=== PATIENT | male | born 1955 | race Caucasian/White ===

== ENCOUNTER 2021-01-23 02:00 | Day surgery (SDC) | payer OTHER, SELFPAY ==
[2021-01-19 13:20] VITALS: BMI 33.7
--- NOTE | 2021-01-23 10:58 | PM.HPGS ---
History of Present Illness History of Present Illness Consent: Risks, benefits, and alternatives have been discussed and questions answered. Patient agrees to proceed with procedure. Chief complaint: diarrhea, hx of colon polyps Narrative: Vini Perez is a 65 year old male Who has been having diarrhea for the past 5 weeks or so. This began on December 13. Yes that was abrupt, however there was no fever abdominal pain or other symptoms to suggest an infection. He had stool cultures done by his primary care physician all of which were negative. He was prescribed Lomotil but he states that it 'Knocked him out' because it is a narcotic. was no travel or antibiotic use prior to the onset of diarrhea. He had 2 polyps removed about 4 years ago. Review of Systems Review of Systems: All systems reviewed & are unremarkable except as noted in HPI and below PMFSH Past Medical History Medical History Alcohol abuse BMI 31.0-31.9,adult BMI 32.0-32.9,adult BMI 33.0-33.9,adult Essential (primary) hypertension RIGO (obstructive sleep apnea) Other hyperlipidemia Family History Family History Mother Hypertension Family history of arthritis Family history of diabetes mellitus in first degree relative Father Family history of pancreatic cancer Grandparent Diabetes mellitus Other Cerebrovascular accident Social History Social History Social History: none Smoking status: Never smoker Second hand tobacco smoke exposure: No Alcohol intake: current Drinks per week: 70 Living arrangements: with family Spiritual care concerns: No Meds Home Medications and Allergies Home Medications Medication Instructions Recorded Confirmed Type losartan 25 mg tablet 12.5 mg PO DAILY #30 tablet 10/13/20 01/19/21 Rx rosuvastatin 20 mg tablet 20 mg PO DAILY #90 tablet 11/07/20 01/19/21 Rx paroxetine HCl 30 mg tablet 30 mg PO DAILY #90 tablet 11/17/20 01/19/21 Rx cholecalciferol (vitamin D3) 250 250 mcg PO DAILY 01/07/21 01/19/21 History mcg (10,000 unit) capsule diphenoxylate-atropine 2.5 2 tablet PO QID #30 tablet 01/07/21 01/19/21 Rx mg-0.025 mg tablet multivitamin 1 tablet PO DAILY 01/07/21 01/19/21 History omeprazole magnesium [Prilosec OTC] 20 mg PO DAILY 01/19/21 01/19/21 History Allergies Allergy/AdvReac Type Severity Reaction Status Date / Time hydrochlorothiazide Allergy Mild Unknown Verified 01/23/21 12:42 lisinopril Allergy Unknown Unknown Verified 01/23/21 12:42 nebivolol Allergy Unknown Unknown Verified 01/23/21 12:42 Exam Resp: Auscultation: clear to auscultation bilaterally Cardio: Rate: regular rate Rhythm: regular rhythm GI: GI Palp: Yes Soft to palpation and No Tenderness to palpation present (GI) Assessment and Plan Assessment and plan (1) Diarrhea: Qualifiers: Diarrhea type: unspecified type Qualified Code(s): R19.7 - Diarrhea, unspecified Code(s): R19.7 - Diarrhea, unspecified Status: Acute Assessment and Plan: Colonoscopy with possible biopsy or polypectomy or cautery or injection of substances.
[2021-01-23 12:43] VITALS: BP 149/91; PULSE 86; RESP 16; TEMP 36.4; O2SAT 97
--- NOTE | 2021-01-23 12:48 | P.PNAN_ITS ---
Anes - Initial Pre Proc Eval Procedure: Operation Date: 01/23/21 13:30 Proposed Procedures p Colonoscopy - Hosea Faye MD Date/Time: 01/23/21 12:48 Surgeon: Hosea Faye MD Pre Op Diagnosis: diarrhea, hx of colon polyps Patient Data Age: 65 Gender: M Height: 1.85 m Weight: 112.8 kg Last Vital Signs Temp 36.4 C L 01/23/21 12:43 Pulse 86 01/23/21 12:43 Resp 16 01/23/21 12:43 BP 149/91 H 01/23/21 12:43 Pulse Ox 97 01/23/21 12:43 Allergies Allergy/AdvReac Type Severity Reaction Status Date / Time hydrochlorothiazide Allergy Mild Unknown Verified 01/23/21 12:42 lisinopril Allergy Unknown Unknown Verified 01/23/21 12:42 nebivolol Allergy Unknown Unknown Verified 01/23/21 12:42 Home Medications Medication Instructions Recorded Confirmed Type losartan 25 mg tablet 12.5 mg PO DAILY #30 tablet 10/13/20 01/19/21 Rx rosuvastatin 20 mg tablet 20 mg PO DAILY #90 tablet 11/07/20 01/19/21 Rx paroxetine HCl 30 mg tablet 30 mg PO DAILY #90 tablet 11/17/20 01/19/21 Rx cholecalciferol (vitamin D3) 250 250 mcg PO DAILY 01/07/21 01/19/21 History mcg (10,000 unit) capsule diphenoxylate-atropine 2.5 2 tablet PO QID #30 tablet 01/07/21 01/19/21 Rx mg-0.025 mg tablet multivitamin 1 tablet PO DAILY 01/07/21 01/19/21 History omeprazole magnesium [Prilosec OTC] 20 mg PO DAILY 01/19/21 01/19/21 History Patient hx anesthesia problems: none Family hx anesthesia problems: other (slow to awaken) [facility] Past Medical History Medical History Alcohol abuse BMI 31.0-31.9,adult BMI 32.0-32.9,adult BMI 33.0-33.9,adult Essential (primary) hypertension RIGO (obstructive sleep apnea) Other hyperlipidemia Family History Family History Mother Hypertension Family history of arthritis Family history of diabetes mellitus in first degree relative Father Family history of pancreatic cancer Grandparent Diabetes mellitus Other Cerebrovascular accident Social History Social History Social History: none Smoking status: Never smoker Second hand tobacco smoke exposure: No Alcohol intake: current Drinks per week: 70 Living arrangements: with family Spiritual care concerns: No Anes - Eval Final PreProcedure Day of Procedure 01/23/21 12:48 Patient weight: obese Heart: regular rate and rhythm Lungs: clear to auscultation Airway: Mallampati scale class II Neurological: alert and oriented Last oral intake: >/= 8 hours ASA classification: III Emergent: no Anesthetic plan: proceed Anesthesia type and monitoring: general GIVS and standard monitoring Informed Consent: The patient's anesthetic plan and its attendant risks and benefits were discussed with the patient/family/POA. Questions were solicited and answers provided to the satisfaction of the patient/family/POA.
[2021-01-23] MEDS: LACTATED RINGERS 1,000 ML 150 ML IV CONT (12:50)
[2021-01-23 13:23] VITALS: BP 122/80; PULSE 83; RESP 16; O2SAT 93
[2021-01-23 13:33] VITALS: BP 146/87; PULSE 81; RESP 18; O2SAT 98
[2021-01-23 13:43] VITALS: BP 153/95; PULSE 70; RESP 16; O2SAT 99
== END 2021-01-23 13:57 | disposition home or self-care (01) ==
PROVIDERS: PCP Family Medicine; Visit Provider Internal Medicine Gastroenterology
PROC: 0DJD8ZZ Inspection of Lower Intestinal Tract, Via Natural or Artificial Opening Endoscopic (ICD-10-PCS; CPT 45378; principal; 2021-01-23 13:30)
DX: K52.831 Collagenous colitis (principal); K52.832 Lymphocytic colitis; R19.7 Diarrhea, unspecified; I10 Essential (primary) hypertension; E78.5 Hyperlipidemia, unspecified; G47.33 Obstructive sleep apnea (adult) (pediatric)
CPT/HCPCS: 45380; 88305; J2704; J7120

== ENCOUNTER 2021-11-04 10:12 | Outpatient (CLI) | payer OTHER, SELFPAY ==
--- NOTE | 2021-11-11 15:34 | WPDHOLTEREM ---
Holter/Event Monitor Holter/Event Monitor Date of procedure: 11/04/21 Holter/Event Procedure: 48 Hr Holter Monitor Indications: Arrhythmia Conclusion: 1. 48 hour holter monitor on 11/04/21. 2. Underlying rhythm is sinus rhythm. HR range 58-164 bpm; average HR 90 bpm. HR at 164 bpm at 12:44. 3. There are 22 premature supraventricular complexes and 1 supraventricular couplet. No supraventricular tachycardia. 4. There are 4,425 premature ventricular complexes, 82 ventricular couplets, 2 ventricular triplets, 23 ventricular bigeminy and 99 ventricular trigeminy. No ventricular tachycardia. 5. No sinoatrial or atrioventricular blocks. No significant pauses greater than 2 seconds. 6. Patient reports lightheadedness which demonstrate sinus tachycardia at 152 bpm with PVC's.
== END 2021-11-04 10:13 | disposition home or self-care (01) ==
LOC: ANHCARD 10:15
PROVIDERS: PCP Family Medicine; Visit Provider Nurse Practitioner Family
DX: I49.9 Cardiac arrhythmia, unspecified (principal)
CPT/HCPCS: 93225; 93226

== ENCOUNTER 2022-01-08 07:56 | Outpatient (CLI) | payer OTHER, SELFPAY ==
--- NOTE | 2022-01-08 07:59 | EST_ITS ---
Patient Info Name: Vini Perez Age: 66 years : 1955 Gender: Male Ht: 75 in Wt: 260 lbs BSA: 2.53 m2 HR: 61 bpm BP: 150 / 94 mmHg Heart Rhythm: Sinus Rhythm Exam Date: 01/08/2022 9:20 AM Exam Location: [facility] Patient Status: Outpatient Admit Date: 01/08/2022 Staff Ordering Physician: Boaz Rajan DO Attending Provider: Boaz Rajan DO Exercise Technologist: Natalie Gorman CT Exercise Physician: Boaz Rajan DO Exam Type: CA stress test treadmill Study Info Indications R06.02 - Shortness of breath A treadmill exercise stress test was performed. Summary 1. 1. Negative Daivd exercise stress test for ischemic ST changes by ECG criteria. 2. 2. Reduced functional capacity, achieving 5.9 METs of workload. 3. 3. Baseline hypertension. 4. 4. Appropriate HR response to exercise. 5. 5. Appropriate HR recovery at 1 minute post exercise. 6. 6. No imaging with stress testing. 7. 7. Patient informed of the above results. Protocol: [facility] ECG Details Stage: REST Duration (min): 2 min : 54 sec Speed (mph): 0.0 Grade (%): 0 HR (bpm): 64 SBP (mmHg): 150 DBP (mmHg): 94 METS: --- Stage: REST Duration (min): 10 min : 0 sec Speed (mph): 0.0 Grade (%): 0 HR (bpm): 64 SBP (mmHg): 150 DBP (mmHg): 94 METS: --- Stage: STAGE 1 Duration (min): 1 min : 0 sec Speed (mph): 1.7 Grade (%): 10 HR (bpm): 103 SBP (mmHg): 150 DBP (mmHg): 94 METS: --- Stage: STAGE 1 Duration (min): 2 min : 0 sec Speed (mph): 1.7 Grade (%): 10 HR (bpm): 120 SBP (mmHg): 150 DBP (mmHg): 94 METS: --- Stage: STAGE 1 Duration (min): 3 min : 0 sec Speed (mph): 1.7 Grade (%): 10 HR (bpm): 122 SBP (mmHg): 186 DBP (mmHg): 82 METS: --- Stage: STAGE 2 Duration (min): 0 min : 40 sec Speed (mph): 2.5 Grade (%): 12 HR (bpm): 130 SBP (mmHg): 186 DBP (mmHg): 82 METS: --- Stage: RECOVERY Duration (min): 0 min : 19 sec Speed (mph): 0.0 Grade (%): 0 HR (bpm): 129 SBP (mmHg): 186 DBP (mmHg): 82 METS: --- Stage: RECOVERY Duration (min): 1 min : 19 sec Speed (mph): 0.0 Grade (%): 0 HR (bpm): 89 SBP (mmHg): 186 DBP (mmHg): 82 METS: --- Stage: RECOVERY Duration (min): 2 min : 19 sec Speed (mph): 0.0 Grade (%): 0 HR (bpm): 67 SBP (mmHg): 186 DBP (mmHg): 82 METS: --- Stage: RECOVERY Duration (min): 3 min : 19 sec Speed (mph): 0.0 Grade (%): 0 HR (bpm): 65 SBP (mmHg): 159 DBP (mmHg): 85 METS: --- Stage: RECOVERY Duration (min): 3 min : 21 sec Speed (mph): 0.0 Grade (%): 0 HR (bpm): 65 SBP (mmHg): 159 DBP (mmHg): 85 METS: --- Rest HR: 64 bpm Peak HR: 131 bpm Rest Sys BP: 150 mmHg Peak Sys BP: 186 mmHg Max Pred HR: 155 bpm % Max Pred HR: 85 % Target HR: 132 bpm Max RPP: 24,366 bpm*mmHg [facility]
--- NOTE | 2022-01-08 07:59 | ECHO_ITS ---
Patient Info Name: Vini Perez Age: 66 years : 1955 Gender: Male Ht: 75 in Wt: 260 lbs BSA: 2.53 m2 HR: 60 bpm BP: 138 / 93 mmHg Technical Quality: Good Exam Date: 01/08/2022 8:31 AM Exam Location: [facility] Pulmonary Patient Status: Outpatient Admit Date: 01/08/2022 Staff Ordering Physician: Boaz Rajan DO Heating Element Repairer: Bridger Gaffney RDCS, RT Attending Provider: Boaz Rajan DO Referring Physician: Satinder BUSTOS; Exam Type: CA echo doppler color flow Study Info Complete two-dimensional, color flow and Doppler transthoracic echocardiogram is performed. Strain analysis performed. Summary 1. Complete two-dimensional, color flow and Doppler transthoracic echocardiogram is performed. 2. Left ventricular chamber dimension is normal. 3. Left ventricular systolic function is normal, estimated at 55-60%. 4. The left ventricular diastolic function is grade II diastolic dysfunction. 5. E/e' 10 is mildly elevated. 6. Global longitudinal strain is abnormal at -14.6%. 7. There is trace mitral valve regurgitation. 8. The aortic root size at the sinus of Valsalva is borderline dilated at 4.1 cm. Left Ventricle E/e' 10 is mildly elevated. Global longitudinal strain is abnormal at -14.6%. Left ventricular chamber dimension is normal. Left ventricular systolic function is normal, estimated at 55-60%. The left ventricular diastolic function is grade II diastolic dysfunction. Right Ventricle Right ventricular systolic function is normal and with normal TAPSE 2.2 cm. Right ventricular chamber dimension is normal. Left Atria Left atrial chamber dimension is normal. Right Atria Right atrial chamber dimension is normal. Aortic Valve The aortic valve is trileaflet. There is no aortic valve stenosis. There is no aortic valve regurgitation. Pulmonic Valve There is no pulmonic regurgitation. Mitral Valve There is no mitral valve stenosis. There is trace mitral valve regurgitation. Tricuspid Valve There is no tricuspid valve regurgitation. Pericardium/Pleural There is no pericardial effusion. Inferior Vena Cava Normal inferior vena cava with >50% collapse upon inspiration consistent with normal right atrial pressure, 5 mmHg. Aorta The aortic root size at the sinus of Valsalva is borderline dilated at 4.1 cm. Left Ventricular Outflow Tract Name Value Normal LVOT 2D LVOT Diameter 2.1 cm LVOT Doppler LVOT Peak Gradient 2 mmHg LVOT Mean Gradient 1 mmHg LVOT VTI 17 cm LVOT VTI/AV VTI Ratio 0.8 LVOT Stroke Volume 59 ml LVOT CO 3.4 l/min LVOT CI 1.3 l/min/m2 Mitral Valve Name Value Normal MV Doppler MV Peak Gradient
== END 2022-01-08 07:57 | disposition home or self-care (01) ==
LOC: ANHCARD 07:57
PROVIDERS: PCP Family Medicine; Visit Provider Internal Medicine Cardiovascular Disease
DX: R06.00 Dyspnea, unspecified (principal); R93.1 Abnormal findings on diagnostic imaging of heart and coronary circulation
CPT/HCPCS: 93017; 93306

== ENCOUNTER 2025-05-24 02:57 | Inpatient (IN) | payer MEDICARE, SELFPAY ==
--- NOTE | ~2025-05-24 | XR_ITS ---
EXAMINATION: XR abdomen gastric tube insert, 05/24/2025 9:30 EXTERNAL AUDITOR HISTORY: post ng tube insertion COMPARISON: No comparisons available. Technique: 3 view. Findings: Bowel gas pattern unremarkable. No obstruction. No free air. No abnormal calcifications No acute osseous abnormality. Nasogastric tube terminates in the body of the stomach Impression: 1. No acute abnormality. Reviewed, dictated and finalized at location P. RNAL AUDITOR Impression: 1. No acute abnormality.
--- NOTE | ~2025-05-24 | XR_ITS ---
EXAM/PROCEDURE: XR sm bowel follow through WS HISTORY: SBO COMPARISON: CT exam same date TECHNIQUE: Small bowel follow-through series Contrast: 240 mL Gastrografin administered by gastric catheter. Number of images: 13 FINDINGS: On the rebar bender image, several loops of distended small bowel and gastric catheter are present. Following administration of enteric contrast, contrast flows quickly through the small bowel and within 45 minutes is in the large bowel. No extravasation of contrast. No obvious mass identified. IMPRESSION: Rapid transit of contrast from the stomach through the small bowel into the large intestine, all within 45 minutes. No evidence of small bowel obstruction. Reviewed, dictated and finalized at location A. TTANCE CLERK IMPRESSION: Rapid transit of contrast from the stomach through the small bowel into the lar ge intestine, all within 45 minutes. No evidence of small bowel obstruction.
--- NOTE | ~2025-05-24 | CT_ITS ---
EXAMINATION: CT abdomen pelvis w con DATE: 05/24/2025 05:41 INDICATION: Left lower quadrant abdominal pain. TECHNIQUE: Computed tomography (CT) of the abdomen and pelvis was performed with 100 mL Omnipaque 350 intravenous contrast. Automated exposure control and iterative reconstruction technique were employed. The dose-length product was 950.32 mGy-cm. COMPARISON: None. FINDINGS: The visualized portions of the lung bases demonstrate mild atelectasis. No pleural effusion. The heart size is normal. No pericardial effusion. The liver, gallbladder, spleen, pancreas, and adrenal glands are normal. There are cysts in the kidneys measuring up to 9 mm on the left. The prostate is moderately enlarged. There is diverticulosis of the colon without evidence of diverticulitis. The appendix is normal. In the left abdomen, there is a loop of jejunum with wall thickening. Proximal to this loop, there is a transition point (axial image 115/265). Proximal to the transition point, je junum is mildly dilated. These findings are consistent with small bowel obstruction. There is a small volume of ascites. There is a right inguinal hernia containing fat. There are no pathologically enlarged lymph nodes. There is severe lumbar spondylosis. IMPRESSION: 1. Small bowel obstruction in left abdomen, which may be partial or early. 2. Small volume of ascites. 3. Right inguinal hernia containing fat. Reviewed, dictated and finalized at location E. ICIAN RECRUITER
--- OUTSIDE RECORDS SUMMARY | 2025-05-24 02:59 | XMS_ITS | Encounter Summary ---
Author Organization [facility] Address [address] [address] Care Team Providers Care Textile Engraver Name Role Phone Jeancarlos Bazan MD Primary Care Provider [phone] Encounter Details Date Type Department Care Team (Late st Contact Info) Description 12/06/2024 Lab Requisition [facility] - DermPath Lab [address] [place] [address] Sussy Abdullahi DO [address] [place] [address] Social History Tobacco Use Types Packs/Day Years Used Date Smoking Tobacco: Never Alcohol Use Standard Drinks/Week Comments Yes 8.3 (1 standard drink = 0.6 oz p ure alcohol) Sex and Gender Information Value Date Recorded Sex Assigned at Not on file 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 Gender Identity Not on file Sexual Orientation Not on file documented as of this encounter Plan of Treatment Not on file documented as of this encounter Procedures Procedure Name Priority Date/Time Associated Diagnosis Comments DERMATOPATHOLOGY Routine 12/06/2024 1:04 PM CDT documented in this encounter Results * DERMATOPATHOLOGY (12/06/2024 1:04 PM CDT) Case Report Dermatopathology Report Case: [id number] Authorizing Provider: Sussy Abdullahi DO Collected: 12/06/2024 01:04 PM Ordering Location: [facility] - Received: 12/10/2024 06:46 AM DermPath Lab Pathologist: Yamilet Jones MD Specimens: A) - Skin, right post thigh B) - Skin, mid chest C) - Skin, left upper back 2:53 PM T DERMATOPATHOLOGY LABORATORY Final Diagnosis Specimen A. 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 SKIN, mid chest: LENTIGINOUS MELANOCYTIC NEVUS, COMPOUND TYPE, INFLAMED (D22.5) Specimen C. SKIN, left upper back: LENTIGINOUS MELANOCYTIC NEVUS, COMPOUND TYPE (D22.5) 2:53 PM CDT DERMATOPATHOLOGY LABORATORY at 1453 CDT Clinical History A: R/O NMSC B-C: Nevus; R/O Atypia 2:53 PM CDT DERMATOPATHOLOGY LABORATORY Gross Description Specimen A: Received is one formalin filled container labeled with the patient's name and designated right post thigh. The specimen consists of a shave biopsy measuring 5x3x1 mm. Jar 0. Specimen B: Received is one formalin filled container labeled with the patient's name and designated mid chest. The specimen consists of a shave biopsy measuring 10x7x1 mm. Jar 0. Specimen C: Received is one formalin filled container labeled with the patient's name and designated left upper back. The specimen consists of a shave biopsy measuring 7x5x1 mm. Jar 0. 2:53 PM CDT DERMATOPATHOLOGY LABORATORY Microscopic Description Specimen A. SKIN, right post thigh: There is acanthosis of the epidermis consisting of uniform cells with pale cytoplasm, a diminished granular layer and overlying parakeratosis with neutrophils. Specimen B. SKIN, mid chest: This is a compound nevus. There is a lentiginous proliferation of melanocytes between nevus nests of cells along the dermal-epidermal junction. There is underlying lamellar fibroplasia of the papillary dermis. The intradermal component is bland in appearance and matures with depth. (Compound Keenan's Nevus) Specimen C. SKIN, left upper back: This is a compound nevus. There is a lentiginous proliferation of melanocytes between nevus nests of cells along the dermal-epidermal junction. There is underlying lamellar fibroplasia of the papillary dermis. The intradermal component is bland in appearance and matures with depth. (Compound Keenan's Nevus) 5 2:53 PM CDT DERMATOPATHOLOGY LABORATORY Disclaimer An external and internal positive and negative controls are appropriate for the histochemical, immunohistochemical and immunofluorescence stain(s) in this case (if any), except where stated explicitly. The performance characteristics of the stain(s) cited in this report were developed and its performance characteristic determined by the Dermatopathology Laboratory at [facility], directed by Dr. Manny Jones. These tests need not be, and therefore are not, approved by the [place] Food and Drug Administration. The tests are used for clinical purposes. Billing Codes Specimen Charges Stain Charges 37759 21297 53749 1 1 1 5 2:53 PM CDT DERMATOPATHOLOGY LABORATORY Embedded Images 2:53 PM CDT DERMATOPATHOLOGY LABORATORY Pathology/Cytology TISSUE SPECIMEN FROM SKIN / Unknown 12/06/2024 1:04 PM CDT 12/10/2024 6:46 AM CDT Miscellaneous samples (specimen) TISSUE SPECIMEN FROM SKIN / Unknown 12/06/2024 1:04 PM CDT 12/10/2024 6:46 AM CDT Miscellaneous samples (specimen) TISSUE SPECIMEN FROM SKIN / Unknown 12/06/2024 1:04 PM CDT 12/10/2024 6:46 AM CDT us Sussy Abdullahi DO LAB - PATHOLOGY/CYTOLOGY ORDERABLES Final Result DERMATOPATHOLOGY LABORATORY [facility] - Department of Dermatology Specialized Medicine [address] [place] [address], [address] [phone] documented in this encounter Visit Diagnoses Not on filedocumented in this encounter Care Teams Textile Engraver Relationship Specialty Start Date End Date Jeancarlos Bazan MD [address] [place] [address] PCP - General 06/03/15 documented as of this encounter
--- OUTSIDE RECORDS SUMMARY | 2025-05-24 02:59 | XMS_ITS | Clinical Summary ---
Author Organization [facility] Address [address] [place] [address] Care Team Providers Care Online Merchandising Coordinator Name Role Phone Jeancarlos Bazan MD Primary Care Provider [phone] Source Comments [facility],non-[facility]iliates and Associated Physician Practices is amultiple site organization consisting of ambulatory clinics and hospital sitesin [place], [place], [place] and [place]. This disclosure is being madepursuant to the Care Everywhere program and may not contain all information available regarding this patient. Last updated 18.[facility] Active Problems Problem Noted Date Diagnosed Date Nonalcoholic steatohepatitis (TALAVERA) 05/29/2015 Immunizations Immunization Administration Dates Next Due HEP A/HEP B 08/14/2015,07/15/2015 Social History Tobacco Use Types Packs/Day Years Used Date Smoking Tobacco: Never Alcohol Use Standard Drinks/Week Comments Yes 8.3 (1 standard drink = 0.6 oz p ure alcohol) Sex and Gender Information Value Date Recorded Sex Assigned at Not on file Legal Sex Male 5:52 PM VIDEO INTERN Gender Identity Not on file Sexual Orientation Not on file Last Filed Vital Signs Vital Sign Reading Time Taken Comments Blood Pressure 161/88 01/13/2016 11:08 AM CDT Pulse 65 01/13/2016 11:08 AM CDT Temperature 36.9 C (98.5 F) 01/13/2016 11:08 AM CDT Respiratory Rate 16 01/13/2016 11:0 8 AM CDT Oxygen Saturation - - Inhaled Oxygen Concentration - - Weight 115.1 kg (253 lb 11.2 oz) 2015 11:08 AM CDT Height 188 cm (6' 2) 01/13/2016 11:08 AM CDT Body Mass Index 32.57 01/13/2016 11:08 AM CDT Plan of Treatment Health Maintenance Due Date Last Done Comments COLOGUARD (AGES 45-75) - COL ON CA SCREENING 1955 COLON MONITORING 1955 COLONOSCOPY - COLON CA SCREENING 1956 CT COLONOGRAPHY - COLON CA SCREENING 1955 Colorectal Cancer Screening 1955 FIT - COLON CA SCREENING 1955 FLEX SIG - COLON CA SCREENING 1955 LIPID TESTING 1955 MEDICARE AWV 12 MONTHS 1955 DTAP/TDAP/TD VACCINES (1 - Tdap) 11/17/1975 PNEUMOCOCCAL VACCINE 50+ (1 of 1 - PCV) 2006 ZOSTER VACCINE (1 of 2) 2006 HEPATITIS B VACCINE (3 of 3 - Hep B Twinrix 3-dose series) 01/14/2016 08/14/2015, 07/15/2015 DEPRESSION SCREENING 06/13/2024 COVID-19 VACCINE (1 - 2024-2 6 season) 2025 INFLUENZA VACCINE (#1) 2025 Respiratory Syncytial Virus (RSV) Vaccine Pt: or over 60 yrs (1 - 1-dose 75+ series) 11/17/2031 HEPATITIS C SCREENING Completed 06/14/2015 HIB VACCINE Aged Out No longer eligi ble based on patient's age to complete this topic HPV VACCINE Aged Out No longer eligi ble based on patient's age to complete this topic MENINGOCOCCAL (Group B) VACCINE SHARED DECISION-MAKING Aged Out No longer eligible based on patient's age to complete this topic MENINGOCOCCAL GROUPS A/C/Y/W VACCINE Aged Out No longer eligible b ased on patient's age to complete this topic Procedures Procedure Name Priority Date/Time Associated Diagnosis Comments HEPATITIS C ANTIBODY Routine 06/14/2015 10:09 AM VIDEO INTERN from Last 3 Months or Most Recently Relevant to Health Maintenance Results * HEPATITIS C ANTIBODY (06/14/2015 10:09 AM VIDEO INTERN) Hepatitis C Virus Antibody <0.1 0.0 - 0.9 s/co ratio [facility] ([facility]) Comment: Negative: < 0.8 Indeterminate: 0.8 - 0.9 Positive: > 0.9 In order to reduce the incidence of a false positive result, the CDC recommends that all s/co ratios between 1.0 and 10.9 be confirmed by a more specific supplemental or PCR testing. [facility] offers HCV Ab w/Reflex to Verification test #[id number]. Blood specimen (specimen) BLOOD SPECIMEN / Unknown 06/14/2015 10:09 AM VIDEO INTERN 06/15/2015 10:23 PM VIDEO INTERN Narrative [facility] ([facility]) - 06/17/2015 8:23 AM VIDEO INTERN Performed at: - [facility] [address] [place], [place] [id number] Door Puller: Morris Ramirez PhD, Phone: [phone] us David Rubio MD LAB - CHEMISTRY ORDERABLES Yamileth meyers Result Performing Organization Address City/State/[facility] Co de Phone Number [facility] [address] [place] [address] from Last 3 Months or Most Recently Relevant to Health Maintenance Insurance [employer]ER[employer] Care Teams Online Merchandising Coordinator Relationship Specialty Start Date End Date Jeancarlos Bazan MD [address] [place] [id number] PCP - General 06/03/15
--- OUTSIDE RECORDS SUMMARY | 2025-05-24 02:59 | XMS_ITS | Encounter Summary ---
Author Organization [facility] Address [address] [place] [address] Care Team Providers Care Parakeet Raiser Name Role Phone Jeancarlos Bazan MD Primary Care Provider [phone] Encounter Details Date Type Department Care Team (Late st Contact Info) Description 08/20/2024 Lab Requisition [facility] - DermPath Lab [address] 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 Gender Identity Not on file Sexual Orientation Not on file documented as of this encounter Plan of Treatment Not on file documented as of this encounter Procedures Procedure Name Priority Date/Time Associated Diagnosis Comments DERMATOPATHOLOGY Routine 08/20/2024 12:4 3 PM CDT documented in this encounter Results * DERMATOPATHOLOGY (08/20/2024 12:43 PM CDT) Case Report Dermatopathology Report Case: [id number] Authorizing Provider: Yumiko Georges MD Collected: 08/20/2024 12:43 PM Ordering Location: [facility] - Received: 08/22/2024 06:45 AM DermPath Lab Pathologist: Yamilet Jones MD Specimens: A) - Skin, right dorsal hand B) - Skin, right mid back 4:45 PM CDT DERMATOPATHOLOGY LABORATORY Final Diagnosis Specimen A. 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 SKIN, right mid back: HYPERPLASTIC (HYPERTROPHIC) ACTINIC KERATOSIS (L57.0) SEBORRHEIC KERATOSIS, IRRITATED (L82.0) (see microscopic description) 4:45 PM CDT DERMATOPATHOLOGY LABORATORY at 1645 CDT Clinical History A-B: R/O SCC 4:45 PM CDT DERMATOPATHOLOGY LABORATORY Gross Description Specimen A: Received is one formalin filled container labeled with the patient's name and designated right dorsal hand. The specimen consists of a shave biopsy measuring 55r30v9 mm. Jar 0. Specimen B: Received is one formalin filled container labeled with the patient's name and designated right mid back. The specimen consists of a shave biopsy measuring 70d59h2 mm. Jar 0. 4:45 PM CDT DERMATOPATHOLOGY LABORATORY Microscopic Description Specimen A. SKIN, right dorsal hand: The epidermis shows parakeratosis, full thickness disorderly maturation of keratinocytes, mitoses at different levels, and dyskeratotic cells. There is a column of marked compact hyperkeratosis. Specimen B. SKIN, right mid back: There is hyperkeratosis alternating with parakeratosis. There is epidermal hyperplasia with disorderly maturation of keratinocytes with nuclear pleomorphism confined to the lower half of the epidermis, which is highlighted on Mib1 (Ki-67). There is adjacent acanthosis consisting of fairly uniform squamous cells with eosinophilic cytoplasm and squamous eddies. 4:45 PM CDT DERMATOPATHOLOGY LABORATORY Disclaimer An external and internal positive and negative controls are appropriate for the histochemical, immunohistochemical and immunofluorescence stain(s) in this case (if any), except where stated explicitly. The performance characteristics of the stain(s) cited in this report were developed and its performance characteristic determined by the Dermatopathology Laboratory at [facility], directed by Dr. Manny Jones. These tests need not be, and therefore are not, approved by the [place] Food and Drug Administration. The tests are used for clinical purposes. Billing Codes Specimen Charges Stain Charges 69928 03320 1 1 43928 1 5 4:45 PM CDT DERMATOPATHOLOGY LABORATORY Embedded Images 5 4:45 PM CDT DERMATOPATHOLOGY LABORATORY Pathology/Cytology TISSUE SPECIMEN FROM SKIN / Unknown 08/20/2024 12:43 PM CDT 08/22/2024 6:45 AM CDT Miscellaneous samples (specimen) TISSUE SPECIMEN FROM SKIN / Unknown 08/20/2024 12:43 PM CDT 08/22/2024 6:45 AM CDT Yumiko Georges MD LAB - PATHOLOGY/CYTOLOGY OR DERABLES Final Result DERMATOPATHOLOGY LABORATORY [facility] Department of Dermatology [facility] Medicine [address] [place] [address], [address] [phone] documented in this encounter Visit Diagnoses Not on filedocumented in this encounter Care Teams Parakeet Raiser Relationship Specialty Start Date End Date eJancarlos Bazan MD [address] [place] [phone] PCP - General 06/03/15 documented as of this encounter
--- OUTSIDE RECORDS SUMMARY | 2025-05-24 02:59 | XMS_ITS | Encounter Summary ---
Author Organization [facility] Address [address] [address] Care Team Providers Care Industrial Relations Officer Name Role Phone Jeancarlos Bazan MD Primary Care Provider [phone] Encounter Details Date Type Department Care Team (Late st Contact Info) Description 02/27/2020 Lab Requisition [facility] DermPath Lab [address] [facility], [place] [address] Radha Blanc MD [address] [facility] 3 [place] [address] Social History Tobacco Use Types Packs/Day Years Used Date Smoking Tobacco: Never Alcohol Use Standard Drinks/Week Comments Yes 8.3 (1 standard drink = 0.6 oz p ure alcohol) Sex and Gender Information Value Date Recorded Sex Assigned at Not on file 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 Gender Identity Not on file Sexual Orientation Not on file documented as of this encounter Plan of Treatment Not on file documented as of this encounter Procedures Procedure Name Priority Date/Time Associated Diagnosis Comments DERMATOPATHOLOGY Routine 02/26/2020 12:0 0 AM CDT documented in this encounter Results * DERMATOPATHOLOGY (02/26/2020 12:00 AM CDT) Case Report Dermatopathology Report Case: [id number] Authorizing Provider: Radha Blanc MD Collected: 02/26/2020 12:00 AM Ordering Location: [facility] DermPath Lab Received: 02/27/2020 01:47 PM Pathologist: Pati Carranza MD Specimens: A) - Skin, chest B) - Skin, mid back 0 6:48 PM CDT DERMATOPATHOLOGY LABORATORY Final Diagnosis Specimen A. SKIN, chest: HYPERPLASTIC (HYPERTROPHIC) ACTINIC KERATOSIS, INFLAMED (L57.0) (see microscopic description) Specimen B. 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 B: [place] papule, BCC vs SK. 0 6:48 PM CDT DERMATOPATHOLOGY LABORATORY Gross Description Specimen A: Received is one formalin filled container labeled with the patient's name and designated chest. The specimen consists of a shave measuring 6b3k1ov. Jar 0. Specimen B: Received is one formalin filled container labeled with the patient's name and designated mid back. The specimen consists of a shave measuring 2l9y0eb. Jar 0. 0 6:48 PM CDT DERMATOPATHOLOGY LABORATORY Microscopic Description Specimen A. SKIN, chest: There is hyperkeratosis alternating with parakeratosis. There is epidermal hyperplasia with disorderly maturation of keratinocytes with nuclear pleomorphism confined to the lower half of the epidermis. The lesion is inflamed. Specimen B. SKIN, mid back: This is a benign keratosis showing acanthosis with acantholysis in the lower layers of the epidermis. The lesion is inflamed. 0 6:48 PM CDT DERMATOPATHOLOGY LABORATORY Disclaimer An external and internal positive and negative controls are appropriate for the histochemical, immunohistochemical and immunofluorescence stain(s) in this case (if any), except where stated explicitly. The performance characteristics of the stain(s) cited in this report were developed and its performance characteristic determined by the Dermatopathology Laboratory at [facility], directed by Dr. Manny Jones. These tests need not be, and therefore are not, approved by the [place] Food and Drug Administration. The tests are used for clinical purposes. Billing Codes Specimen Charges Stain Charges 97114 19770 1 1 0 6:48 PM CDT DERMATOPATHOLOGY LABORATORY Embedded Images 0 6:48 PM CDT DERMATOPATHOLOGY LABORATORY Pathology/Cytology TISSUE SPECIMEN FROM SKIN / Unknown 02/26/2020 02/27/2020 1:47 PM CDT Miscellaneous samples (specimen) TISSUE SPECIMEN FROM SKIN / Unknown 02/26/2020 02/27/2020 1:47 PM CDT us Radha Blanc MD LAB - PATHOLOGY/CYTOLOGY ORD ERABLES Final Result DERMATOPATHOLOGY LABORATORY [facility] - Department of Dermatology [facility] Medicine [address] [place] [address], [address] [phone] documented in this encounter Visit Diagnoses Not on filedocumented in this encounter Care Teams Industrial Relations Officer Relationship Specialty Start Date End Date Jeancarlos Bazan MD [address] [place] [address] PCP - General 06/03/15 documented as of this encounter
--- OUTSIDE RECORDS SUMMARY | 2025-05-24 02:59 | XMS_ITS | Clinical Summary ---
Author Organization [facility] Care Team Providers Care Diamond Expert Name Role Phone Unavailable Primary Care Provider Unavailabl e Social History Tobacco Use Types Packs/Day Years Used Date Smoking Tobacco: Never Assessed Sex and Gender Information Value Date Recorded Sex Assigned at Not on file Legal Sex Male 12:28 AM CDT Gender Identity Not on file Sexual Orientation Not on file Plan of Treatment Health Maintenance Due Date Last Done Comments Hepatitis C Virus (HCV) Screening 1955 TdaP Immunization 1955 Cologuard 2001 Colonoscopy 2001 Colorectal Cancer Screening 2001 Immunochemical Fecal Occult Blood 2001 Pneumococcal Immunization (5 0+ years) (1 of 1 - PCV) 2006 Zoster Immunization (1 of 2) 2006 Influenza Immunization (#1) 2025 SARS-COV-2 Immunization ( - 2024- season) 2025 06/09/2021, 08/18/2020 Respiratory Syncytial Virus (RSV) Immunization (Adult) (1 - 1-dose 75+ series) 11/17/2031 Hepatitis B Immunization Aged Out No longer eligible based on patient's age to complete this topic Human Papillomavirus (HPV) Immunization Aged Out No longer eligible b ased on patient's age to complete this topic Meningococcal Immunization (ACWY) Aged Out No longer eligible b ased on patient's age to complete this topic Rotavirus Immunization Aged Out No lo nger eligible based on patient's age to complete this topic
[2025-05-24 03:00] VITALS: BP 152/92; PULSE 60; RESP 28; TEMP 36.5; O2SAT 100
--- NOTE | 2025-05-24 03:02 | ECG_ITS ---
Test Date: 2025-05-24 03:08:02 Measurements Intervals Humphreys Rate: 60 P: 15 KS: 180 QRS: 46 QRSD: 98 T: 69 QT: 436 QTc: 436 Interpretive Statements SINUS RHYTHM MINIMAL Q WAVES- LATERAL LEADS BASELINE ARTIFACT- I, II, III, AVR, AVL, AVF, V1-V6 BORDERLINE ECG No previous ECG available for comparison Electronically Signed On 05-24-2025 06:29:52 SECURITY RESEARCHER by Boaz Rajan D.O.
[2025-05-24 03:27] LABS: Hematocrit 44.2 % (42.0-52.0); Hemoglobin 15.5 g/dL (14.0-18.0); Immature Granulocyte Percent A 0.6 % (0-0.5); Lymphocytes Absolute Auto 1.86 K/mm3 (0.9-3.2); Mean Corpuscular HGB Conc 35.1 g/dl (32-36); Mean Corpuscular Hemoglobin 31.1 pg (26-34); Mean Corpuscular Volume 88.8 fl (80-100); Nucleated Red Blood Cells Absolute Auto 0.000 K/mm3 (0.0-0.012); Nucleated Red Blood Cells Perc 0.0 % (0.0-0.2); Platelet Count Result 294 k/mm3 (150-375); Red Blood Count 4.98 M/mm3 (4.6-6.20); White Blood Count 9.4 K/mm3 (4.5-10.0)
[2025-05-24 03:38] LABS: Alanine Aminotransferase 27 U/L (6-50); Albumin Level 5.0 g/dL (3.5-5.1); Alkaline Phosphatase 62 U/L (38-126); Anion Gap 13 mmol/L (4-12); Aspartate Amino Transferase 33 U/L (17-59); Bilirubin,Total 0.8 mg/dL (0.2-1.3); Blood Urea Nitrogen 9 mg/dL (9-20); Calcium 10.8 mg/dL (8.4-10.2); Carbon Dioxide 21 mmol/L (22-30); Chloride 99 mmol/L (98-107); Estimated CRCL calculation 93 ml/min; Estimated Glomerular Filt Rate > 60; Glucose 145 mg/dL (65-110); Lipase 234 U/L (23-300); Potassium 3.8 mmol/L (3.4-5.0); Sodium 133 mmol/L (137-145); Total Protein 8.3 g/dL (6.3-8.2)
--- NOTE | 2025-05-24 04:50 | ED.ABDPAIN ---
HPI - Abdominal Pain General Chief Complaint: Abdominal Pain Stated Complaint: Abd pain/vomiting Time Seen by Provider: 05/24/25 04:43 Source: patient Mode of arrival: ambulatory Limitations: no limitations History of Present Illness HPI narrative: This is a 69-year-old male with history of depression, hypertension who presents to the ED for abdominal pain. Patient states that he was woken up this morning about 4 hours ago with lower abdominal pain. He had nausea and 3 episodes of emesis immediately after but the nausea has improved. He continues to have the lower abdominal pain. Last colonoscopy was a few years ago and had some polyps but no diverticulosis that he is aware of. Denies fevers, chills, chest pain, shortness of breath. Related Data Home Medications ?Medication ?Instructions ?Recorded ?Confirmed ?Last Taken ?Type multivitamin 1 tablet PO DAILY 01/07/21 05/17/25 01/22/21 History omeprazole magnesium 20 mg 20 mg PO DAILY 01/19/21 05/17/25 01/22/21 History tablet,delayed release (Prilosec OTC) hyoscyamine sulfate 0.125 mg tablet 0.125 mg PO QID 01/21/25 05/17/25 Unknown History Allergies Allergy/AdvReac Type Severity Reaction Status Date / Time hydrochlorothiazide Allergy Mild Unknown Verified 05/24/25 02:59 lisinopril Allergy Unknown Unknown Verified 05/24/25 02:59 nebivolol Allergy Unknown Unknown Verified 05/24/25 02:59 Review of Systems Review of Systems: All systems reviewed & are unremarkable except as noted in HPI and below PMFSH Past Medical History Medical History Encounter for screening for malignant neoplasm of prostate Alcoholism Prediabetes Ingrowing toenail BMI 34.0-34.9,adult Colon cancer screening BMI 31.0-31.9,adult Screening for thyroid disorder Screening for malignant neoplasm of prostate Screening for diabetes mellitus Alcohol abuse Essential (primary) hypertension RIGO (obstructive sleep apnea) Other hyperlipidemia Family History Family History Mother Hypertension Family history of arthritis Family history of diabetes mellitus in first degree relative Father Family history of pancreatic cancer Grandparent Diabetes mellitus Sibling Hypertension Other Cerebrovascular accident Social History Social History Social History: none Smoking status: Never smoker Second hand tobacco smoke exposure: No Alcohol intake: current Drinks per week: 70 Substance use: never Substance use type: does not use Lack of Transportation: No Lack of Food: Never True Current Housing: I Have Housing Concerned About Future Housing: No Difficulty Paying for Meds: No Currently Unemployed: No Education: High School Diploma/GED Difficulty w/ Childcare or Family Care: No Living arrangements: with family Occupation/Education: retired Additional occupation/education comments: [employer] Gender identity (if verbalized by the patient): Male Spiritual care concerns: No Exam Narrative: APPEARANCE: No acute distress, nontoxic, resting in bed EYES: EOMI HEENT: Normocephalic, atraumatic, OMM RESPIRATORY: No respiratory distress Clear to auscultation bilaterally with no rhonchi wheezing or rales. CARDIOVASCULAR: Regular rate and rhythm without murmurs rubs or gallops. ABDOMINAL: Soft, tenderness to palpation to the left lower quadrant without rebound or guarding MUSCULOSKELETAl: Moves all extremities. No clubbing, cyanosis or edema. NEURO: Awake and alert. Following commands, speech normal, no focal deficits SKIN:: Warm, dry. No rashes lesions or abrasions PSYCHIATRIC: Normal affect/mood, Course Vital Signs Vital signs: Vital Signs Temperature 97.7 F 05/24/25 03:00 Pulse Rate 60 05/24/25 03:00 Respiratory Rate 28 H 05/24/25 03:00 Blood Pressure 152/92 H 05/24/25 03:00 Pulse Oximetry 100 05/24/25 03:00 Oxygen Delivery Room Air 05/24/25 03:00 Temperature 98.8 F 05/24/25 07:45 Pulse Rate 80 05/24/25 07:45 Respiratory Rate 20 05/24/25 07:45 Blood Pressure 169/100 H 05/24/25 07:45 Pulse Oximetry 99 05/24/25 07:45 Oxygen Delivery Room Air 05/24/25 03:00 [facility] Narrative Medical decision making narrative: 61-year-old male Presenting for lower abdominal pain with nausea and vomiting. On initial evaluation patient was in no acute distress afebrile, hemodynamic stable. Differentials include but are not limited to: Diverticulitis, constipation, ureterolithiasis, enterocolitis, colitis, obstruction, cancer Notable exam findings: Tenderness palpation to the lower abdominal quadrants worse in the left lower quadrant. I personally reviewed the patient's lab result. Notable lab findings: CBC without significant abnormalities. Mild hyponatremia 133. Mildly elevated calcium at 10.8. UA clear. CT abdomen/pelvis consistent with an early small-bowel obstruction. Given the small-bowel obstruction, patient will require admission for further evaluation and treatment. Case was discussed with hospitalist who will admit the patient, does request surgical consultation. Case was discussed with Dr. Baxter, General surgery, recommends placing NGT and will see the patient as a consult. Differential Diagnosis Differential Diagnosis: Diverticulitis, constipation, ureterolithiasis, enterocolitis, colitis, obstruction, cancer Lab Data 05/24/25 03:16 05/24/25 03:16 Labs: Lab Results 05/24/25 05/24/25 Range/Units 03:16 06:32 WBC 9.4 (4.5-10.0) K/mm3 RBC 4.98 (4.6-6.20) M/mm3 Hgb 15.5 (14.0-18.0) g/dL Hct 44.2 (42.0-52.0) % MCV 88.8 (80-100) fl MCH 31.1 (26-34) pg MCHC 35.1 (32-36) g/dl RDW 12.6 (11.5-14.5) % Plt Count 294 (150-375) k/mm3 MPV 8.9 (7.4-10.4) fl Immature Gran % (Auto) 0.6 H (0-0.5) % Neut % (Auto) 68.0 (45.5-73.1) % Lymph % (Auto) 19.9 (18.3-44.2) % Maverick % (Auto) 9.6 H (2.6-8.5) % Eos % (Auto) 1.2 (0-4.4) % Baso % (Auto) 0.7 (0.2-1.2) % Lymph # (Auto) 1.86 (0.9-3.2) K/mm3 Maverick # (Auto) 0.9 H (0.1-0.6) K/mm3 Eos # (Auto) 0.1 (0-0.3) K/mm3 Baso # (Auto) 0.1 (0.0-0.1) K/mm3 Abs Immat Gran (auto) 0.06 H (0.00-0.031) K/mm3 Absolute Neuts (auto) 6.4 (1.3-6.7) K/mm3 Absolute Nucleated RBC 0.000 (0.0-0.012) K/mm3 Nucleated RBC % 0.0 (0.0-0.2) % Sodium 133 L (137-145) mmol/L Potassium 3.8 (3.4-5.0) mmol/L Chloride 99 (98-107) mmol/L Carbon Dioxide 21 L (22-30) mmol/L Anion Gap 13 H (4-12) mmol/L BUN 9 (9-20) mg/dL Creatinine 0.79 (0.7-1.3) mg/dL Estim Creat Clear Calc 93 ml/min Estimated GFR > 60 (59 - ) Glucose 145 H (65-110) mg/dL Calcium 10.8 H (8.4-10.2) mg/dL Total Bilirubin 0.8 (0.2-1.3) mg/dL AST 33 (17-59) U/L ALT 27 (6-50) U/L Alkaline Phosphatase 62 (38-126) U/L Total Protein 8.3 H (6.3-8.2) g/dL Albumin 5.0 (3.5-5.1) g/dL Lipase 234 (23-300) U/L Urine Color Yellow (Yellow) Urine Appearance Clear (Clear) Urine pH 8.0 (5.0-9.0) Ur Specific Peetz > 1.045 H (1.001-1.035) Urine Protein Negative (Negative) mg/dL Urine Glucose (UA) Negative (Negative) mg/dL Urine Ketones 1+ H (Negative) mg/dL Ur Blood (Man) Non-hemolyzed trace (Negative) Urine Nitrate Negative (Negative) Urine Bilirubin Negative (Negative) Urine Urobilinogen 0.2 (<2.0) mg/dL Leukocyte Esterase Rfl Negative (Negative) SARAH/UL Urine RBC 0-2 (0-2) /hpf Urine WBC 0-5 (0-3) /hpf Ur Squamous Epith Cells None seen (Few) /hpf Urine Bacteria None seen /hpf Urine Casts 0-2 Imaging Data Attestation: I personally reviewed and interpreted this imaging study as follows: Radiologist's impression: ITS Impressions Abdomen/Pelvis CT 05/24/25 06:57 IMPRESSION: 1. Small bowel obstruction in left abdomen, which may be partial or early. 2. Small volume of ascites. 3. Right inguinal hernia containing fat. Discharge Plan Discharge Clinical Impression: Partial small bowel obstruction Patient Disposition: Still a Patient Condition: Stable Patient Language: Georgian Prescriptions: No Action multivitamin Tablet 1 tablet PO DAILY hyoscyamine sulfate 0.125 mg tablet 0.125 mg PO QID omeprazole magnesium [Prilosec OTC] 20 mg Tablet,Delayed Release (Dr/Ec) 20 mg PO DAILY carvedilol 12.5 mg tablet See Rx Instructions .ROUTE .COMPLEX Qty: 180 2RF Dose Instruction: TAKE 1 TABLET BY MOUTH TWICE DAILY Rx Instructions: TAKE 1 TABLET BY MOUTH TWICE DAILY rosuvastatin 20 mg tablet See Rx Instructions .ROUTE .COMPLEX Qty: 90 0RF Dose Instruction: TAKE 1 TABLET BY MOUTH DAILY Rx Instructions: TAKE 1 TABLET BY MOUTH DAILY cholestyramine (with sugar) 4 gram powder in packet See Rx Instructions .ROUTE .COMPLEX Qty: 30 3RF Dose Instruction: MIX CONTENTS OF 1 PACKET AND TAKE ONCE DAILY WITH A MEAL. AVOID OTHER MEDS WITH 1 HOUR PRIOR OR 4 TO 6 HOURS AFTER Rx Instructions: MIX CONTENTS OF 1 PACKET AND TAKE ONCE DAILY WITH A MEAL. AVOID OTHER MEDS WITH 1 HOUR PRIOR OR 4 TO 6 HOURS AFTER losartan 100 mg tablet See Rx Instructions .ROUTE .COMPLEX Qty: 30 5RF Dose Instruction: TAKE 1 TABLET BY MOUTH DAILY Rx Instructions: TAKE 1 TABLET BY MOUTH DAILY paroxetine HCl 10 mg tablet 10 mg PO DAILY Qty: 30 1RF Follow-up/Referrals: Jeancarlos Bazan MD [Primary Care Provider, Family Practice]
--- OUTSIDE RECORDS SUMMARY | 2025-05-24 04:58 | XMS_ITS | Clinical Summary ---
Author Organization [facility] Care Team Providers Care Technology Coach Name Role Phone Unavailable Primary Care Provider [...]
--- OUTSIDE RECORDS SUMMARY | 2025-05-24 04:58 | XMS_ITS | Encounter Summary ---
Author Organization [facility] Address [address] [facility] [place] [address] Care Team Providers Care Supervisor Decorating Name Role Phone Jeancarlos Bazan MD Primary Care Provider [phone] Encounter Details Date Type Department Care Team (Late st Contact Info) Description 02/27/2020 Lab Requisition [facility] DermPath Lab [address] [facility], [place] [address] Radha Blanc MD [address] [facility] 3 [place] [address] Social History Tobacco Use Types Packs/Day Years Used Date Smoking Tobacco: Never Alcohol Use Standard Drinks/Week Comments Yes 8.3 (1 standard drink = 0.6 oz p ure alcohol) Sex and Gender Information Value Date Recorded Sex Assigned at Not on file Legal Sex Male 5:52 PM LAB INTERN Gender Identity Not on file Sexual Orientation Not on file documented as of this encounter Plan of Treatment Not on file documented as of this encounter Procedures Procedure Name Priority Date/Time Associated Diagnosis Comments DERMATOPATHOLOGY Routine 02/26/2020 12:0 0 AM CDT documented in this encounter Results * DERMATOPATHOLOGY (02/26/2020 12:00 AM CDT) Case Report Dermatopathology Report Case: [id number] Authorizing Provider: Radha Blanc MD Collected: 02/26/2020 12:00 AM Ordering Location: [facility] DermPath Lab Received: 02/27/2020 01:47 PM Pathologist: [...] LABORATORY at 1848 CDT Clinical History A: [place] papule, ISK vs VV R/O SCC. B: [place] papule, BCC vs SK. 0 6:48 PM CDT DERMATOPATHOLOGY LABORATORY Gross Description Specimen A: Received is one formalin filled container labeled with the patient's name and designated chest. The specimen consists of a shave measuring 4i5g1cm. Jar 0. Specimen B: Received is one formalin filled container labeled with the patient's name and designated mid back. The specimen consists of a shave measuring [id number]. Jar 0. 0 6:48 PM CDT DERMATOPATHOLOGY [...] characteristic determined by the Dermatopathology Laboratory at [facility], directed by Dr. Manny Jones. These tests need not be, and therefore are not, approved by the [place] Food and Drug Administration. The tests are used for clinical purposes. Billing Codes Specimen Charges Stain Charges 20363 47420 1 1 0 6:48 PM CDT DERMATOPATHOLOGY LABORATORY Embedded Images 0 6:48 PM CDT DERMATOPATHOLOGY LABORATORY Pathology/Cytology TISSUE SPECIMEN FROM SKIN / Unknown 02/26/2020 02/27/2020 1:47 PM CDT Miscellaneous samples (specimen) TISSUE SPECIMEN FROM SKIN / Unknown 02/26/2020 02/27/2020 1:47 PM CDT us Radha Blanc MD LAB - PATHOLOGY/CYTOLOGY ORD ERABLES Final Result DERMATOPATHOLOGY LABORATORY [facility] - Department of Dermatology [facility] Medicine [address] [place] [address], [address] [phone] documented in this encounter Visit Diagnoses Not on filedocumented in this encounter Care Teams Supervisor Decorating Relationship Specialty Start Date End Date Jeancarlos Bazan MD [address] [place] [address] PCP - General 06/03/15 documented as of this encounter
--- OUTSIDE RECORDS SUMMARY | 2025-05-24 04:58 | XMS_ITS | Encounter Summary ---
Author Organization [facility] Address [address] [place] [address] Care Team Providers Care Digital Media Producer Name Role Phone Jeancarlos Bazan MD Primary Care Provider [phone] Encounter Details Date Type Department Care Team (Late st Contact Info) Description 12/06/2024 Lab Requisition [facility] - DermPath Lab [address] [facility], [place] [address] Sussy Abdullahi DO [address] [facility] [address] [place] [address] Social History Tobacco Use Types Packs/Day Years Used Date Smoking Tobacco: Never Alcohol Use Standard Drinks/Week Comments Yes 8.3 (1 standard drink = 0.6 oz p ure alcohol) Sex and Gender Information Value Date Recorded Sex Assigned at Not on file 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 Gender Identity Not on file Sexual Orientation Not on file documented as of this encounter Plan of Treatment Not on file documented as of this encounter Procedures Procedure Name Priority Date/Time Associated Diagnosis Comments DERMATOPATHOLOGY Routine 12/06/2024 1:04 PM CDT documented in this encounter Results * DERMATOPATHOLOGY (12/06/2024 1:04 PM CDT) Case Report Dermatopathology Report Case: [id number] Authorizing Provider: Sussy Abdullahi DO Collected: 12/06/2024 01:04 PM Ordering Location: [facility] - Received: [...] characteristic determined by the Dermatopathology Laboratory at [facility], directed by Dr. Manny Jones. These tests need not be, and therefore are not, approved by the [place] Food and Drug Administration. The tests are used for clinical purposes. Billing Codes Specimen Charges Stain Charges 73837 49454 75896 1 1 1 5 2:53 PM CDT [...] - PATHOLOGY/CYTOLOGY ORDERABLES Final Result DERMATOPATHOLOGY LABORATORY [facility] - Department of Dermatology [facility] [address] [place] [address], [address]rd [address] [phone] documented in this encounter Visit Diagnoses Not on filedocumented in this encounter Care Teams Digital Media Producer Relationship Specialty Start Date End Date Jeancarlos Bazan MD [address] [place] [address] PCP - General 06/03/15 documented as of this encounter
--- OUTSIDE RECORDS SUMMARY | 2025-05-24 04:58 | XMS_ITS | Encounter Summary ---
Author Organization [facility] Address [address] [place] [address] Care Team Providers Care Director Imaging Name Role Phone Jeancarlos Bazan MD Primary Care Provider [phone] Encounter Details Date Type Department Care Team (Late st Contact Info) Description 08/20/2024 Lab Requisition [facility] - DermPath Lab [address] [facility], [place] [address] Yumiko Georges MD [address] [facility] [address] [place] [address] Social History Tobacco Use Types Packs/Day Years Used Date Smoking Tobacco: Never Alcohol Use Standard Drinks/Week Comments Yes 8.3 (1 standard drink = 0.6 oz p ure alcohol) Sex and Gender Information Value Date Recorded Sex Assigned at Not on file 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 Gender Identity Not on file Sexual Orientation Not on file documented as of this encounter Plan of Treatment Not on file documented as of this encounter Procedures Procedure Name Priority Date/Time Associated Diagnosis Comments DERMATOPATHOLOGY Routine 08/20/2024 12:4 3 PM CDT documented in this encounter Results * DERMATOPATHOLOGY (08/20/2024 12:43 PM CDT) Case Report Dermatopathology Report Case: [id number] Authorizing Provider: Yumiko Georges MD Collected: 08/20/2024 12:43 PM Ordering Location: [facility] - Received: 08/22/2024 06:45 AM [...] specimen consists of a shave biopsy measuring [id number] mm. Jar 0. Specimen B: Received is one formalin filled container labeled with the patient's name and designated right mid back. The specimen consists of a shave biopsy measuring [id number] mm. Jar 0. 4:45 PM CDT DERMATOPATHOLOGY [...] characteristic determined by the Dermatopathology Laboratory at [facility], directed by Dr. Manny Jones. These tests need not be, and therefore are not, approved by the [place] Food and Drug Administration. The tests are used for clinical purposes. Billing Codes Specimen Charges Stain Charges 55115 [id number] 1 1 08172 1 5 4:45 PM CDT DERMATOPATHOLOGY LABORATORY Embedded Images 5 4:45 PM CDT DERMATOPATHOLOGY LABORATORY Pathology/Cytology TISSUE SPECIMEN FROM SKIN / Unknown 08/20/2024 12:43 PM CDT 08/22/2024 6:45 AM CDT Miscellaneous samples (specimen) TISSUE SPECIMEN FROM SKIN / Unknown 08/20/2024 12:43 PM CDT 08/22/2024 6:45 AM CDT Yumiko Georges MD LAB - PATHOLOGY/CYTOLOGY OR DERABLES Final Result DERMATOPATHOLOGY LABORATORY [facility] Department of Dermatology [facility] Medicine [address] [place] [address], [address] [phone] documented in this encounter Visit Diagnoses Not on filedocumented in this encounter Care Teams Director Imaging Relationship Specialty Start Date End Date Jeancarlos Bazan MD [address] [place] [id number] PCP - General 06/03/15 documented as of this encounter
--- OUTSIDE RECORDS SUMMARY | 2025-05-24 04:58 | XMS_ITS | Clinical Summary ---
Author Organization [facility] Address [address] [facility] [place] [address] Care Team Providers Care Manager Office Name Role Phone Jeancarlos Bazan MD Primary Care Provider [phone] Source Comments [facility],non-[facility] Affiliates and Associated Physician Practices is amultiple site organization consisting of ambulatory clinics and hospital sitesin [place], [place], [place] and [place]. This disclosure is being madepursuant to the Care Everywhere program and may not contain all information available regarding this patient. 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 Gender Identity Not on file Sexual Orientation [...] HEPATITIS C ANTIBODY Routine 06/14/2015 10:09 AM CERTIFIED EXECUTIVE CHEF from Last 3 Months or Most Recently Relevant to Health Maintenance Results * HEPATITIS C ANTIBODY (06/14/2015 10:09 AM CERTIFIED EXECUTIVE CHEF) Hepatitis C Virus Antibody <0.1 0.0 - 0.9 s/co ratio [facility] Comment: Negative: < 0.8 Indeterminate: 0.8 - 0.9 Positive: > 0.9 In order to reduce the incidence of a false positive result, the CDC recommends that all s/co ratios between 1.0 and 10.9 be confirmed by a more specific supplemental or PCR testing. [facility] offers HCV Ab w/Reflex to Verification test #[id number]. Blood specimen (specimen) BLOOD SPECIMEN / Unknown 06/14/2015 10:09 AM CERTIFIED EXECUTIVE CHEF 06/15/2015 10:23 PM CERTIFIED EXECUTIVE CHEF N[facility]ative [facility] - 06/17/2015 8:23 AM CERTIFIED EXECUTIVE CHEF Performed at: - [facility] [address] [place], [place] [id number] Zipper Measurer: Morris Ramirez PhD, Phone: [phone] us David Rubio MD LAB - CHEMISTRY ORDERABLES Yamileth meyers Result Performing Organization Address City/State/[facility] Co de Phone Number [facility] ([facility]) [address] [place] [address] from Last 3 Months or Most Recently Relevant to Health Maintenance Insurance [employer] Care Teams Manager Office Relationship Specialty Start Date End Date Jeancarlos Bazan MD [address] [place] [phone] PCP - General 06/03/15
[2025-05-24 05:27] VITALS: BP 152/94; PULSE 75; RESP 19; O2SAT 100
[2025-05-24] MEDS: SODIUM CHLORIDE 0.9% IV 1,000 ML 999 ML IV CONT (06:36)
[2025-05-24] MEDS: KETOROLAC 30 MG/ML VIAL (*BKC) IV PUSH (06:37)
[2025-05-24 06:44] LABS: Add Urine Microscopic? NO; Appearance Urine Clear (Clear); Glucose Urine UA Negative (Negative); Leukocyte Esterase Ur Negative LEU/UL (Negative); Nitrate Urine Negative (Negative); Non Pathogenic Casts 0-2; Specific Grav Ur > 1.045 (1.001-1.035)
[2025-05-24 07:45] VITALS: BP 169/100; PULSE 80; RESP 20; TEMP 37.1; O2SAT 99
[2025-05-24 09:23] VITALS: BP 166/95; PULSE 96; RESP 20; O2SAT 99
[2025-05-24] MEDS: BENZOCAINE/TETRACAINE SPRAY (*SP) 56 ML AEROSOL 1 SPRAY MUCOUS MEM (09:24)
--- NOTE | 2025-05-24 09:25 | WPCEDHO ---
ED Hand Off Checklist All vitals saved: yes IV Site documented: yes All med administrations documented: yes Triage Note Triage Note Pt arrives from home with c/o abd 05/24/25 05:29 pain that started overnight with vomiting, no diarrhea. States that he is currently being weaned from Sertraline and switching to Paxil. States drank some beer and took a small piece of a THC gummy to assist with sleeping. agree with triage assessment. pt taken to CT scan. pt VSS Allergies hydrochlorothiazide Allergy (Mild, Verified 05/24/25 02:59) Unknown lisinopril Allergy (Unknown, Verified 05/24/25 02:59) Unknown nebivolol Allergy (Unknown, Verified 05/24/25 02:59) Unknown Family History (Last Reviewed 05/24/25 @ 04:51 by Vitaly Christensen DO) Mother Hypertension Family history of arthritis Family history of diabetes mellitus in first degree relative Father Family history of pancreatic cancer Grandparent Diabetes mellitus Sibling Hypertension Other Cerebrovascular accident Administered/Completed Medications Discontinued Medications Benzocaine/Butamben/Tetracaine HCl (Benzocaine/Tetracaine [place] (*Sp) 56 Ml Aerosol) 1 spray MUCOUS MEM ONCE ONE Stop: 05/24/25 09:01 Last Admin: 05/24/25 09:24 Dose: 1 spray Documented By: MLI Sodium Chloride (Normal Saline Iv) 1,000 mls @ 999 mls/hr IV CONT .Q1H1M STA Stop: 05/24/25 05:49 Last Infusion: 05/24/25 07:45 Dose: Infused Documented By: Admin: 05/24/25 06:36 Dose: 999 mls/hr Documented By: ACS Ketorolac Tromethamine (Ketorolac 30 Mg/Ml Vial (*Bkc)) 30 mg IV PUSH ONCE STA Stop: 05/24/25 04:50 Last Admin: 05/24/25 06:37 Dose: 30 mg Documented By: ACS Interventions/Assessments IV / Saline Lock, Insert Start: 05/24/25 03:02 Freq: STAT Status: Active Protocol: Document 05/24/25 03:18 AMI (Rec: 05/24/25 03:19 AMI [id number]) IV Assessment Peripheral Access Left Antecubital IV Catheter Access Initiated IV Insertion Date 05/24/25 IV Insertion Time 03:19 Catheter Gauge 20 IV Insertion 1 Attempts IV Site Assessment WNL IV Care and WNL Maintenance PA: Gastrointestinal Assessment Start: 05/24/25 02:58 Freq: Status: Active Protocol: Document 05/24/25 05:30 [facility] (Rec: 05/24/25 05:30 ACS [id number]) GI Assessment Gastrointestinal Nausea,Pain Symptoms Description Tender Pattern Normal Nausea/Vomiting Assessment Nausea Frequency Intermittent Emesis Frequency None Last Vital Signs Temperature 98.8 F 05/24/25 07:45 Pulse Rate 96 05/24/25 09:23 Respiratory Rate 20 05/24/25 09:23 Pulse Oximetry 99 05/24/25 09:23 Blood Pressure 166/95 H 05/24/25 09:23 Blood Pressure Mean 118 05/24/25 09:23 Blood Pressure Position Sitting 05/24/25 03:00 Oxygen Delivery Room Air 05/24/25 03:00 Weight 109.1 kg 05/24/25 05:29 Last Result - Abnormals Only Immature Gran % (Auto) 0.6 % (0-0.5) H 05/24/25 03:16 [place] % (Auto) 9.6 % (2.6-8.5) H 05/24/25 03:16 [place] # (Auto) 0.9 K/mm3 (0.1-0.6) H 05/24/25 03:16 Abs Immat Gran (auto) 0.06 K/mm3 (0.00-0.031) H 05/24/25 03:16 Sodium 133 mmol/L (137-145) L 05/24/25 03:16 Carbon Dioxide 21 mmol/L (22-30) L 05/24/25 03:16 Anion Gap 13 mmol/L (4-12) H 05/24/25 03:16 Glucose 145 mg/dL (65-110) H 05/24/25 03:16 Calcium 10.8 mg/dL (8.4-10.2) H 05/24/25 03:16 Total Protein 8.3 g/dL (6.3-8.2) H 05/24/25 03:16 Ur Specific [place] > 1.045 (1.001-1.035) H 05/24/25 06:32 Urine Ketones 1+ mg/dL (Negative) H 05/24/25 06:32 Most Recent Suicide Severity Rating Suicide Severity Rating NO RISK INDICATED 05/24/25 05:29
[2025-05-24 10:34] VITALS: BMI 29.2
--- NOTE | 2025-05-24 11:55 | P.CONGS_ITS ---
Assessment and Plan Assessment and plan (1) Partial small bowel obstruction: Code(s): K56.600 - Partial intestinal obstruction, unspecified as to cause Status: Acute Assessment and Plan: * I have reviewed the CT and discussed the findings with the patient. He has evidence of a small-bowel obstruction but has never had surgery before. Scar tissue could be caused by prior history is of colitis but this would still be somewhat atypical. He was passing flatus this morning. I would like to get a Gastrografin small-bowel follow-through today to assess for any signs of complete obstruction. Discussed that this could be somewhat of a spasm of the small intestine causing this partial blockage or could be related to an infectious cause. Will await small-bowel follow-through results and discuss further treatment options. (2) Collagenous colitis: Code(s): K52.831 - Collagenous colitis Status: Acute (3) Hypertension: Qualifiers: Hypertension type: primary hypertension Qualified Code(s): I10 - Essential (primary) hypertension Code(s): I10 - Essential (primary) hypertension Status: Acute (4) RIGO (obstructive sleep apnea): Code(s): G47.33 - Obstructive sleep apnea (adult) (pediatric) Status: Acute History of Present Illness Consult details Consult date: 05/24/25 Reason for consult: other (SBO) Requesting physician: Vitaly Christensen DO Narrative: this is a 69-year-old man who I am asked to see for a small-bowel obstruction. He presented to the emergency department last night with generalized abdominal pain with nausea and vomiting. He had eaten dinner around 4:00 p.m. and did not began experiencing symptoms until about 10:00 p.m. or later. He has never had any symptoms like this in the past. He has no recent ill contacts and his ate the same dinner without any similar symptoms. He denies any past abdominal surgery. He does have a history of collagenous colitis and has had colonoscopies in the past. He denied any changes in his bowel habits leading up to this. He did have a normal bowel movement yesterday morning. He states that he is passing some flatus but has not had a bowel movement today. Review of Systems 2 Review of Systems: All systems reviewed & are unremarkable except as noted in HPI and below Eyes: Eyes: Denies change in vision ENT: Denies hearing loss, Denies neck pain and Denies sore throat Cardiovascular: Cardiovascular: Denies chest pain and Denies dyspnea Respiratory: Respiratory: Denies cough, Denies dyspnea and Denies wheezing Gastrointestinal: Gastrointestinal: Reports as per HPI Genitourinary: Genitourinary: Denies hematuria and Denies dysuria Musculoskeletal: Musculoskeletal: Denies arthralgias, Denies joint swelling and Denies neck pain Allergic/Immunologic: Allergic/Immunologic: Denies wheezing PMFSH Past Medical History Medical History Encounter for screening for malignant neoplasm of prostate Alcoholism Prediabetes Ingrowing toenail BMI 34.0-34.9,adult Colon cancer screening BMI 31.0-31.9,adult Screening for thyroid disorder Screening for malignant neoplasm of prostate Screening for diabetes mellitus Alcohol abuse Essential (primary) hypertension RIGO (obstructive sleep apnea) Other hyperlipidemia Family History Family History Mother Hypertension Family history of arthritis Family history of diabetes mellitus in first degree relative Father Family history of pancreatic cancer Grandparent Diabetes mellitus Sibling Hypertension Other Cerebrovascular accident Social History Social History Social History: none Smoking status: Never smoker Second hand tobacco smoke exposure: No Alcohol intake: current Drinks per week: 70 Substance use: current Substance use type: marijuana Other substance usage details: 12 beers a day and an occassional thc gummy Lack of Transportation: No Lack of Food: Never True Current Housing: I Have Housing Concerned About Future Housing: No Difficulty Paying Gas/Electric Bills: No Difficulty Paying for Meds: No Currently Unemployed: No Education: Don't Know Difficulty w/ Childcare or Family Care: No Living arrangements: with family Occupation/Education: retired Additional occupation/education comments: [employer] Gender identity (if verbalized by the patient): Male Spiritual care concerns: No Meds Home Medications and Allergies Home Medications ?Medication ?Instructions ?Recorded ?Confirmed ?Type multivitamin 1 tablet PO DAILY 01/07/21 1 07/25/24 History omeprazole magnesium 20 mg 20 mg PO DAILY 01/19/2106/06 History tablet,delayed release (Prilosec OTC) carvedilol 12.5 mg tablet See Rx Instructions .Route 0 09/27/24 05/24/25 Rx .COMPLEX #180 tabs hyoscyamine sulfate 0.125 mg tablet 0.125 mg PO Q12H 0 01/21/25 05/24/25 History cholestyramine (with sugar) 4 gram See Rx Instructions .Route 02/15/25 05/24/25 Rx powder for susp in a packet .COMPLEX #30 ea paroxetine HCl 10 mg tablet 10 mg PO DAILY #30 tabs 05/24/25 Rx losartan 100 mg tablet See Rx Instructions .Route . COMPLEX 05/24/25 05/24/25 History rosuvastatin 20 mg tablet See Rx Instructions .Route . COMPLEX 05/24/25 05/24/25 History Allergies Allergy/AdvReac Type Severity Reaction Status Date / Time hydrochlorothiazide Allergy Mild Unknown Verified 05/24/25 10:59 lisinopril Allergy Unknown Unknown Verified 05/24/25 10:59 nebivolol Allergy Unknown Unknown Verified 05/24/25 10:59 Vital Signs Vital Signs - 24 hr 05/24/25 03:00 05/24/25 05:27 05/24/25 07:45 Temperature 97.7 F 98.8 F Pulse Rate 60 75 80 Respiratory Rate 28 H 19 20 Blood Pressure 152/92 H 152/94 H 169/100 H Pulse Oximetry 100 100 99 Oxygen Delivery Room Air 05/24/25 09:23 Temperature Pulse Rate 96 Respiratory Rate 20 Blood Pressure 166/95 H Pulse Oximetry 99 Oxygen Delivery Exam 2 Const: General: alert; No acute distress Orientation/consciousness: patient oriented x3 Limitations: no limitations HENMT: Head: normocephalic and atraumatic Ears: hearing grossly normal bilaterally Face/Nose/Sinus: Normal external nose present and Normal nares present Mouth: Yes Normal oral and palatal mucosa present and Yes moist mucous membranes Eyes: General: appearance normal, both eyes and all related structures C onjunctivae: conjunctivae normal Sclera: sclerae normal Pupils: Equal, round and reactive pupils present EOM: EOMs intact bilaterally Neck: Neck: normal visual inspection, full ROM, no lymphadenopathy, supple and no JVD Lymphatic: no lymphadenopathy noted Chest: Chest palpation & inspection: normal inspection of the chest Resp: Effort & Inspection: normal respiratory effort and able to speak in complete sentences Auscultation: clear to auscultation bilaterally P ercussion: percussion normal Cardio: Jugular venous distension: no JVD Rate: regular rate Rhythm: r egular rhythm Heart sounds: S1 normal heart sound present and S2 normal heart sound present Peripheral pulses: Peripheral pulses 2+ throughout GI: Inspection: normal to inspection GI Palp: Yes Soft to palpation, No Tenderness to palpation present (GI) and No Guarding due to palpation present (GI) Percussion: Yes tympanic to percussion Auscultation: Hypoactive bowel sounds present : General: Yes no CVA tenderness Back/Spine/Pelvis: Back: no CVA tenderness Skin: General skin exam: normal color and dry skin Neuro: General: patient oriented x3, gait normal, moves all extremities, no focal motor deficits and CN's II-XI intact bilaterally Cranial nerves: Yes Equal, round and reactive pupils present Speech: normal speech Extrem: General: normal to inspection and capillary refill normal Results Labs 05/24/25 03:16 05/24/25 03:16 Labs: Abnormal lab results 05/24/25 05/24/25 Range/Units 03:16 06:32 Immature Gran % (Auto) 0.6 H (0-0.5) % [place] % (Auto) 9.6 H (2.6-8.5) % [place] # (Auto) 0.9 H (0.1-0.6) K/mm3 Abs Immat Gran (auto) 0.06 H (0.00-0.031) K/mm3 Sodium 133 L (137-145) mmol/L Carbon Dioxide 21 L (22-30) mmol/L Anion Gap 13 H (4-12) mmol/L Glucose 145 H (65-110) mg/dL Calcium 10.8 H (8.4-10.2) mg/dL Total Protein 8.3 H (6.3-8.2) g/dL Ur Specific [place] > 1.045 H (1.001-1.035) Urine Ketones 1+ H (Negative) mg/dL Diabetes panel 05/24/25 Range/Units 03:16 Sodium 133 L (137-145) mmol/L Potassium 3.8 (3.4-5.0) mmol/L Chloride 99 (98-107) mmol/L Carbon Dioxide 21 L (22-30) mmol/L BUN 9 (9-20) mg/dL Creatinine 0.79 (0.7-1.3) mg/dL Glucose 145 H (65-110) mg/dL Calcium 10.8 H (8.4-10.2) mg/dL AST 33 (17-59) U/L ALT 27 (6-50) U/L Alkaline Phosphatase 62 (38-126) U/L Total Protein 8.3 H (6.3-8.2) g/dL Albumin 5.0 (3.5-5.1) g/dL Calcium panel 05/24/25 Range/Units 03:16 Calcium 10.8 H (8.4-10.2) mg/dL Albumin 5.0 (3.5-5.1) g/dL Pituitary panel 05/24/25 Range/Units 03:16 Sodium 133 L (137-145) mmol/L Potassium 3.8 (3.4-5.0) mmol/L Chloride 99 (98-107) mmol/L Carbon Dioxide 21 L (22-30) mmol/L BUN 9 (9-20) mg/dL Creatinine 0.79 (0.7-1.3) mg/dL Glucose 145 H (65-110) mg/dL Calcium 10.8 H (8.4-10.2) mg/dL Adrenal panel 05/24/25 Range/Units 03:16 Sodium 133 L (137-145) mmol/L Potassium 3.8 (3.4-5.0) mmol/L Chloride 99 (98-107) mmol/L Carbon Dioxide 21 L (22-30) mmol/L BUN 9 (9-20) mg/dL Creatinine 0.79 (0.7-1.3) mg/dL Glucose 145 H (65-110) mg/dL Calcium 10.8 H (8.4-10.2) mg/dL Total Bilirubin 0.8 (0.2-1.3) mg/dL AST 33 (17-59) U/L ALT 27 (6-50) U/L Alkaline Phosphatase 62 (38-126) U/L Total Protein 8.3 H (6.3-8.2) g/dL Albumin 5.0 (3.5-5.1) g/dL All other labs normal. Imaging Additional studies: ITS Impressions Abdomen/Pelvis CT 05/24/25 06:57 IMPRESSION: 1. Small bowel obstruction in left abdomen, which may be partial or early. 2. Small volume of ascites. 3. Right inguinal hernia containing fat. Abdomen X-Ray 05/24/25 09:45 Impression: 1. No acute abnormality.
--- NOTE | 2025-05-24 13:39 | P.HP_ITS ---
H&P: HPI History of Present Illness Date/Time: 05/24/25 13:39 Chief Complaint: Abd pain and vomiting Narrative: 69 yo male with PMH of HTN, Microscopic colitis, Depression who presented to the ER on account of abd pain and Vomiting. Noted that he started having abd pain about 12 midnight, described as Sharp upper abd region associated with Vomiting. Denies any chest pain, SOB, fever, dysuria, and focal weakness. ER eval notable for BP 152/92. Labs mostly unremarkable CT AP showed small bowel obstruction in left abd whcih may be partial or early Review of Systems Review of Systems: All other systems were reviewed and negative except as noted in the HPI above [facility] Past Medical History Medical History Encounter for screening for malignant neoplasm of prostate Alcoholism Prediabetes Ingrowing toenail BMI 34.0-34.9,adult Colon cancer screening BMI 31.0-31.9,adult Screening for thyroid disorder Screening for malignant neoplasm of prostate Screening for diabetes mellitus Alcohol abuse Essential (primary) hypertension RIGO (obstructive sleep apnea) Other hyperlipidemia Family History Family History Mother Hypertension Family history of arthritis Family history of diabetes mellitus in first degree relative Father Family history of pancreatic cancer Grandparent Diabetes mellitus Sibling Hypertension Other Cerebrovascular accident Social History Social History Social History: none Smoking status: Never smoker Second hand tobacco smoke exposure: No Alcohol intake: current Drinks per week: 70 Substance use: current Substance use type: marijuana Other substance usage details: 12 beers a day and an occassional thc gummy Lack of Transportation: No Lack of Food: Never True Current Housing: I Have Housing Concerned About Future Housing: No Difficulty Paying Gas/Electric Bills: No Difficulty Paying for Meds: No Currently Unemployed: No Education: Don't Know Difficulty w/ Childcare or Family Care: No Living arrangements: with family Occupation/Education: retired Additional occupation/education comments: [employer] Gender identity (if verbalized by the patient): Male Spiritual care concerns: No Meds Home Medications and Allergies Home Medications ?Medication ?Instructions ?Recorded ?Confirmed ?Type multivitamin 1 tablet PO DAILY 01/07/21 1 07/25/24 History omeprazole magnesium 20 mg 20 mg PO DAILY 01/19/2106/06 History tablet,delayed release (Prilosec OTC) carvedilol 12.5 mg tablet See Rx Instructions .Route 0 09/27/24 05/24/25 Rx .COMPLEX #180 tabs hyoscyamine sulfate 0.125 mg tablet 0.125 mg PO Q12H 0 01/21/25 05/24/25 History cholestyramine (with sugar) 4 gram See Rx Instructions .Route 02/15/25 05/24/25 Rx powder for susp in a packet .COMPLEX #30 ea paroxetine HCl 10 mg tablet 10 mg PO DAILY #30 tabs 05/24/25 Rx losartan 100 mg tablet See Rx Instructions .Route . COMPLEX 05/24/25 05/24/25 History rosuvastatin 20 mg tablet See Rx Instructions .Route . COMPLEX 05/24/25 05/24/25 History Allergies Allergy/AdvReac Type Severity Reaction Status Date / Time hydrochlorothiazide Allergy Mild Unknown Verified 05/24/25 10:59 lisinopril Allergy Unknown Unknown Verified 05/24/25 10:59 nebivolol Allergy Unknown Unknown Verified 05/24/25 10:59 Vital Signs Vital Signs - 24 hr 05/24/25 03:00 05/24/25 05:27 05/24/25 07:45 Temperature 97.7 F 98.8 F Pulse Rate 60 75 80 Respiratory Rate 28 H 19 20 Blood Pressure 152/92 H 152/94 H 169/100 H Pulse Oximetry 100 100 99 Oxygen Delivery Room Air 05/24/25 09:23 Temperature Pulse Rate 96 Respiratory Rate 20 Blood Pressure 166/95 H Pulse Oximetry 99 Oxygen Delivery Exam Narrative: General: alert and comfortable Eyes: EOMI, PERRLA ENNT External ears normal, Neck is supple, no masses, Respiratory systems: Clear to auscultation Cardiovascular S1, S2, normal rhythm, no murmur, rub, or gallop; no thrill or palpable murmurs on palpation. Gastrointestinal: soft, LUQ tenderness , and non-distended abdomen with no masses; BS present Skin: no rash, lesions, ulcerations, subcutaneous nodules or induration Musculoskeletal: no abnormality and no tenderness, normal ROM Neurologic: Alert and oriented x3, non focal Mental Status Exam: normal affect Results Labs Labs: Short CBC 05/24/25 Range/Units 03:16 WBC 9.4 (4.5-10.0) K/mm3 Hgb 15.5 (14.0-18.0) g/dL Hct 44.2 (42.0-52.0) % Plt Count 294 (150-375) k/mm3 BMP 05/24/25 03:16 Sodium 133 L Potassium 3.8 Chloride 99 Carbon Dioxide 21 L BUN 9 Creatinine 0.79 Glucose 145 H Calcium 10.8 H Liver Function 05/24/25 Range/Units 03:16 Total Bilirubin 0.8 (0.2-1.3) mg/dL AST 33 (17-59) U/L ALT 27 (6-50) U/L Alkaline Phosphatase 62 (38-126) U/L Albumin 5.0 (3.5-5.1) g/dL Urine 05/24/25 Range/Units 06:32 Urine Color Yellow (Yellow) Urine Appearance Clear (Clear) Urine pH 8.0 (5.0-9.0) Ur Specific [place] > 1.045 H (1.001-1.035) Urine Protein Negative (Negative) mg/dL Urine Glucose (UA) Negative (Negative) mg/dL Assessment and Plan Assessment and plan (1) Partial small bowel obstruction: Code(s): K56.600 - Partial intestinal obstruction, unspecified as to cause Status: Acute Plan Partial SBO Presented with abd pain and vomiting CT AP showed partial SBO NPO, IVF, PRN pain control and monitor follow through study pending Gen surgery followin g HTN PRN Hydralazine, titrate home meds with clinical course Depression restart home meds once tolerating PO DVT prophylaxis on Sq Lovenox Full code SDM: Mary Perez
[2025-05-24 14:00] VITALS: BP 164/110; PULSE 127; RESP 18; TEMP 37.4; O2SAT 100
[2025-05-24] MEDS: THIAMINE HCL INJ 100 MG, FOLIC ACID INJ 1 MG, MAGNESIUM SULFATE INJ 1 GM, MULTIVITAMINS... 125 MG IV CONT (14:22)
== END 2025-05-24 15:50 | disposition left against medical advice (07) | DRG 390 ==
LOC: ANHED 08:30 → ANH3MEDSUR 09:16
PROVIDERS: Admitting Provider Internal Medicine; Emergency Provider Student in an Organized Health Care Education/Training Program; PCP Family Medicine; Visit Provider Internal Medicine
DX: K56.600 Partial intestinal obstruction, unspecified as to cause (principal); K52.831 Collagenous colitis; R73.03 Prediabetes; E78.49 Other hyperlipidemia; I10 Essential (primary) hypertension; G47.33 Obstructive sleep apnea (adult) (pediatric); F10.10 Alcohol abuse, uncomplicated; F12.90 Cannabis use, unspecified, uncomplicated
CPT/HCPCS: 36415; 74177; 74250; 80053; 81003; 83690; 85025; 93005; 96361; 96374; 99285; A9270; J0360; J1885; J3411; J3475; J7030; Q9967